=== PATIENT | male | born 1935 | race Caucasian/White ===

== ENCOUNTER → 2016-06-11 | Outpatient (CLI) | payer MEDICARE, OTHER ==
[~2016-06-11] MED LIST: ALBUTEROL0.63 MG/3 NEB; AMARYL4 MG PO; ASPIRIN CHEWABL81 MG PO; ATIVAN1 MG PO; BREO ELLIPTA 11 EACH INH; COLCHICINE0.6 MG PO; FENOFIBRATE160 MG PO; HYDRALAZINE HCL50 MG PO; LASIX 40 MG TAB40 MG PO; LISINOPRIL5 MG PO; LOPRESSOR100 MG PO; LOVASTATIN20 MG PO; NEURONTIN 300300 MG PO; NEXIUM20 MG PO; NOVOLIN 70100 UNITS/ SC; PAXIL10 MG PO; PLAQUENIL 200200 MG PO; PROSCAR5 MG PO; SINGULAIR10 MG PO; SPIRIVA HANDIH18 MCG INH; SYNTHROID112 MCG PO; VENTOLIN HFA8 GM INH; VITAMIN B-125000 MCG SL; XARELTO15 MG PO; XARELTO20 MG PO; ZANTAC300 MG PO; ZOCOR40 MG PO; ZYLOPRIM 300 M300 MG PO
== END ==
LOC: KOH-I 13:19
DX: I73.9 Peripheral vascular disease, unspecified (principal)
CPT/HCPCS: 93925

== ENCOUNTER → 2016-08-10 | Outpatient (CLI) | payer MEDICARE, OTHER | LOC: KOH-I 15:58 | DX: M79.89 Other specified soft tissue disorders (principal); I82.622 Acute embolism and thrombosis of deep veins of left upper extremity | CPT/HCPCS: 93971 ==

== ENCOUNTER 2020-05-20 10:03 | Observation (INO) | payer MEDICARE, OTHER ==
[~2020-05-20] VITALS: Ht 177.8 cm; Wt 102.5 kg
[~2020-05-20 10:03] MED LIST changes: +ACETAMINOPHEN-1 EAC1 PO; +ALBUTEROL2.5 MG/3 M INH; +B-125000 MCG SL; +CEFUROXIME500 MG PO; +CLARITIN10 MG PO; +CLEOCIN HCL300 MG PO; +CLOPIDOGREL75 MG PO; +D3-501250 MCG PO; +DOXYCYCLINE HY100 MG PO; +ECOTRIN81 MG PO; +ELIQUIS2.5 MG PO; +FEOSOL325 MG PO; +FLOMAX 0.4 MG0.4 MG PO; +FLOMAX0.4 MG PO; +FLONASE 0.05% N16 GM; +FUROSEMIDE40 MG PO; +HUMIBID LA TAB600 MG PO; +HYDRALAZINE HCL25 MG PO; -HYDRALAZINE HCL50 MG PO; +IMDUR ER TAB 3030 MG PO; +KEFLEX500 MG PO; +LASIX40 MG PO; +LEVAQUIN500 MG PO; +LISINOPRIL2.5 MG PO; +LOPRESSOR 25 MG25 MG PO; +LOPRESSOR50 MG PO; +MEDROL4 MG PO; +MUCUS ER600 MG PO; +NICOTINE PATCH1 EAC1 TD; +NITROGLYCERIN0.4 MG SL; +NOVOLOG MI100 UNITS/ INJ; +OMNICEF 300 MG300 MG PO; +PLAQUENIL200 MG PO; +PREDNISONE 20 M20 MG PO; +PREDNISONE20 MG PO; +PROTONIX40 MG PO; +SPIRIVA18 MCG INH; +SYMBICORT 16010.2 GM INH; +SYNTHROID175 MCG PO; +TRAMADOL HCL50 MG PO; +TRAZODONE HCL50 MG PO; +TYLENOL W/CODEIN1 E1 PO; +VENTOLIN HFA 66.7 GM INH; -VENTOLIN HFA8 GM INH; +VIBRAMYCIN100 MG PO; +VICTOZA 1818 MG/3 ML SC; +VICTOZA 3-0.6 MG/0.1 SQ; +VITAMIN D31000 UNI1 PO; +XYZAL5 MG PO; +ZAROXOLYN/DIUL2.5 MG PO; +ZOCOR80 MG PO; +ZOFRAN ODT 4 MG4 MG PO; +ZOFRAN4 MG PO; +ZYLOPRIM100 MG PO
[2020-05-20 10:52] LABS: RED BLOOD COUNT 4.37 M/UL (4.20-5.50); WHITE BLOOD COUNT 9.5 K/UL (4.5-11.0)
[2020-05-20] MEDS ORDERED: FERROUS SULFAT325 MG PO (12:02)
[2020-05-20] MEDS ORDERED: ELIQUIS 2.5 MG2.5 MG PO (13:38)
[2020-05-20] MEDS ORDERED: HYDRALAZINE HCL50 MG PO (14:15)
[2020-05-20] MEDS ORDERED: NICORETTE2 M1 BU (15:32)
[2020-05-20] MEDS ORDERED: ZAROXOLYN/DIULO5 MG PO (20:26)
[2020-05-21 03:32] LABS: HEMOGLOBIN 12.8 gm/dl (14.0-17.5); RED BLOOD COUNT 4.09 M/UL (4.20-5.50); WHITE BLOOD COUNT 9.2 K/UL (4.5-11.0)
== END 2020-05-21 10:41 | disposition home or self-care (01) ==
LOC: ER1 10:03 → CDU 14:03 → MED SURG 4 14:03
PROVIDERS: Emergency Medicine; Physician Assistant Medical; ADMIT Internal Medicine
DX: R07.89 Other chest pain (principal); I13.0 Hypertensive heart and chronic kidney disease with heart failure and stage 1 through stage 4 chronic kidney disease, or unspecified chronic kidney disease; E11.22 Type 2 diabetes mellitus with diabetic chronic kidney disease; N18.9 Chronic kidney disease, unspecified; I50.23 Acute on chronic systolic (congestive) heart failure; I42.0 Dilated cardiomyopathy; I25.10 Atherosclerotic heart disease of native coronary artery without angina pectoris; E78.5 Hyperlipidemia, unspecified; E11.51 Type 2 diabetes mellitus with diabetic peripheral angiopathy without gangrene; C67.9 Malignant neoplasm of bladder, unspecified; J44.9 Chronic obstructive pulmonary disease, unspecified; F17.210 Nicotine dependence, cigarettes, uncomplicated; Z20.822 Contact with and (suspected) exposure to COVID-19; Z95.810 Presence of automatic (implantable) cardiac defibrillator; Z86.718 Personal history of other venous thrombosis and embolism; Z82.49 Family history of ischemic heart disease and other diseases of the circulatory system; Z91.048 Other nonmedicinal substance allergy status; Z79.4 Long term (current) use of insulin; Z79.01 Long term (current) use of anticoagulants; Z79.899 Other long term (current) drug therapy
CPT/HCPCS: 36415; 71046; 80048; 80053; 82550; 82553; 82962; 83036; 83735; 83874; 83880; 84439; 84443; 84484; 85025; 85027; 85610; 85730; 93005; 96372; 96374; 96375; 96376; 99285; G0378; J1940; U0002

== ENCOUNTER 2020-08-11 10:12 | Day surgery (SDC) | payer MEDICARE, OTHER ==
[~2020-08-11 10:12] MED LIST changes: +ELIQUIS 2.5 MG2.5 MG PO; +FERROUS SULFAT325 MG PO; +HYDRALAZINE HCL50 MG PO; +NICORETTE2 M1 BU; +ZAROXOLYN/DIULO5 MG PO
[2020-08-11 11:47] LABS: HEMOGLOBIN 9.8 gm/dl (14.0-17.5); RED BLOOD COUNT 3.17 M/UL (4.20-5.50); WHITE BLOOD COUNT 8.5 K/UL (4.5-11.0)
[2020-08-11] MEDS ORDERED: SPIRIVA18 MCG INH (11:51)
== END 2020-08-11 16:52 | disposition home or self-care (01) ==
LOC: OR 10:12 → MED SURG 4 14:58 → OR 16:52
PROVIDERS: Urology
DX: C67.8 Malignant neoplasm of overlapping sites of bladder (principal); N40.1 Benign prostatic hyperplasia with lower urinary tract symptoms; R33.8 Other retention of urine; J44.9 Chronic obstructive pulmonary disease, unspecified; I13.0 Hypertensive heart and chronic kidney disease with heart failure and stage 1 through stage 4 chronic kidney disease, or unspecified chronic kidney disease; E11.22 Type 2 diabetes mellitus with diabetic chronic kidney disease; N18.9 Chronic kidney disease, unspecified; I50.43 Acute on chronic combined systolic (congestive) and diastolic (congestive) heart failure; I25.10 Atherosclerotic heart disease of native coronary artery without angina pectoris; K21.9 Gastro-esophageal reflux disease without esophagitis; E11.51 Type 2 diabetes mellitus with diabetic peripheral angiopathy without gangrene; E78.5 Hyperlipidemia, unspecified; I48.91 Unspecified atrial fibrillation; F17.210 Nicotine dependence, cigarettes, uncomplicated; E66.2 Morbid (severe) obesity with alveolar hypoventilation; M19.90 Unspecified osteoarthritis, unspecified site; Z95.0 Presence of cardiac pacemaker; Z68.30 Body mass index [BMI] 30.0-30.9, adult; Z91.048 Other nonmedicinal substance allergy status; Z79.01 Long term (current) use of anticoagulants; Z79.4 Long term (current) use of insulin; Z79.899 Other long term (current) drug therapy; Z20.822 Contact with and (suspected) exposure to COVID-19
CPT/HCPCS: 36415; 82962; 85027; 93005; C1769; J1956; J2001; J2370; J2405; J2704; J2710; J3010; J7030; J7120; U0002

== ENCOUNTER → 2020-09-16 | Outpatient (CLI) | payer MEDICARE, OTHER | LOC: CT 12:32 | DX: C67.2 Malignant neoplasm of lateral wall of bladder (principal); N13.30 Unspecified hydronephrosis | CPT/HCPCS: 71260; 82565; 84520; Q9967 ==

== ENCOUNTER 2020-11-13 09:32 | Inpatient (IN) | payer MEDICARE, OTHER ==
[~2020-11-13] VITALS: Ht 177.8 cm; Wt 94.3 kg
[2020-11-13 10:19] LABS: HEMOGLOBIN 13.7 gm/dl (14.0-17.5); RED BLOOD COUNT 4.38 M/UL (4.20-5.50); WHITE BLOOD COUNT 7.7 K/UL (4.5-11.0)
[2020-11-13 10:59] LABS: BUN/CREATININE RATIO 26 (0-10)
[2020-11-14 02:54] LABS: HEMOGLOBIN 12.8 gm/dl (14.0-17.5); RED BLOOD COUNT 4.19 M/UL (4.20-5.50)
[2020-11-14 04:24] LABS: ACINETOBACTER BAUMANNII Not Detected (Negative); CANDIDA ALBICANS Not Detected (Negative); CANDIDA KRUSEI Not Detected (Negative); CANDIDA TROPICALIS Not Detected (Negative); ENTEROCOCCUS Not Detected (Negative); ESCHERICHIA COLI Not Detected (Negative); HAEMOPHILUS INFLUENZAE Not Detected (Negative); KLEBSIELLA OXYTOCA Not Detected (Negative); KLEBSIELLA PNEUMONIAE Not Detected (Negative); KPC-CARBAPENEM-RESISTANCE GENE Not Detected (Negative); PROTEUS Not Detected (Negative); PSEUDOMONAS AERUGINOSA Not Detected (Negative); SERRATIA MARCESANS Not Detected (Negative); STAPHYLOCOCCUS AUREUS Not Detected (Negative); STREP AGALACTIAE (GROUP B) Not Detected (Negative); STREP PYOGENES (GROUP A) Not Detected (Negative); STREPTOCOCCUS Not Detected (Negative); vanA/B (VANCOMYCIN RESIST GENE Not Detected (Negative)
[2020-11-14 05:37] LABS: STAPHYLOCOCCUS DETECTED (Negative); mecA (METHICILLIN RESIST GENE DETECTED (Negative)
[2020-11-14 11:00] LABS: BORDETELLA PARAPERTUSSIS Not Detected (Not Detectd); BORDETELLA PERTUSSIS Not Detected (Not Detectd); CHLAMYDIA PNEUMONIAE Not Detected (Not Detectd); CORONAVIRUS HKU1 Not Detected (Not Detectd); CORONAVIRUS NL63 Not Detected (Not Detectd); CORONAVIRUS OC43 Not Detected (Not Detectd); CORONOAVIRUS 229E Not Detected (Not Detectd); HUMAN METAPNEUMOVIRUS Not Detected (Not Detectd); INFLUENZA A Not Detected (Not Detectd); INFLUENZA B Not Detected (Not Detectd); MYCOPLASMA PNEUMONIAE Not Detected (Not Detectd); PARAINFLUENZA VIRUS 1 Not Detected (Not Detectd); PARAINFLUENZA VIRUS 2 Not Detected (Not Detectd); PARAINFLUENZA VIRUS 3 Not Detected (Not Detectd); PARAINFLUENZA VIRUS 4 Not Detected (Not Detectd); RESPIRATORY SYNCYTIAL VIRUS Not Detected (Not Detectd)
[2020-11-14 12:52] LABS: HUMAN RHINOVIRUS/ENTEROVIRUS DETECTED (Not Detectd); SARS-CoV-2 NOT DETECTED (Not Detectd)
[2020-11-16 04:51] LABS: HEMOGLOBIN 12.7 gm/dl (14.0-17.5); RED BLOOD COUNT 4.07 M/UL (4.20-5.50); WHITE BLOOD COUNT 21.7 K/UL (4.5-11.0)
[2020-11-17 06:49] LABS: HEMOGLOBIN 13.2 gm/dl (14.0-17.5); RED BLOOD COUNT 4.31 M/UL (4.20-5.50)
[2020-11-17 06:56] LABS: WHITE BLOOD COUNT 16.2 K/UL (4.5-11.0)
[2020-11-17] MEDS ORDERED: LEVOFLOXACIN750 MG PO (16:39)
== END 2020-11-17 18:10 | disposition home or self-care (01) | DRG 177 ==
LOC: ER1 09:32 → PROG CARE 10:40 → CDU 10:40 → PROG CARE 15:42 → MED SURG 4 11-16 11:30
PROVIDERS: Emergency Medicine; Internal Medicine Infectious Disease; Physician Assistant; ADMIT Internal Medicine
PROC: B24BZZ4 Ultrasonography of Heart with Aorta, Transesophageal (ICD-10-PCS; principal; 2020-11-13)
DX: J15.1 Pneumonia due to Pseudomonas (principal); J96.21 Acute and chronic respiratory failure with hypoxia; N17.0 Acute kidney failure with tubular necrosis; Z20.822 Contact with and (suspected) exposure to COVID-19; J44.1 Chronic obstructive pulmonary disease with (acute) exacerbation; I50.22 Chronic systolic (congestive) heart failure; I13.0 Hypertensive heart and chronic kidney disease with heart failure and stage 1 through stage 4 chronic kidney disease, or unspecified chronic kidney disease; I42.8 Other cardiomyopathies; I44.2 Atrioventricular block, complete; J44.0 Chronic obstructive pulmonary disease with (acute) lower respiratory infection; N13.1 Hydronephrosis with ureteral stricture, not elsewhere classified; I25.10 Atherosclerotic heart disease of native coronary artery without angina pectoris; I44.7 Left bundle-branch block, unspecified; G47.33 Obstructive sleep apnea (adult) (pediatric); N18.30 Chronic kidney disease, stage 3 unspecified; E11.22 Type 2 diabetes mellitus with diabetic chronic kidney disease; I08.3 Combined rheumatic disorders of mitral, aortic and tricuspid valves; I27.20 Pulmonary hypertension, unspecified; E11.51 Type 2 diabetes mellitus with diabetic peripheral angiopathy without gangrene; I48.0 Paroxysmal atrial fibrillation; F17.210 Nicotine dependence, cigarettes, uncomplicated; D69.6 Thrombocytopenia, unspecified; E11.65 Type 2 diabetes mellitus with hyperglycemia; T38.0X5A Adverse effect of glucocorticoids and synthetic analogues, initial encounter; C76.8 Malignant neoplasm of other specified ill-defined sites; Z86.718 Personal history of other venous thrombosis and embolism; Z79.01 Long term (current) use of anticoagulants; Z80.1 Family history of malignant neoplasm of trachea, bronchus and lung; Z80.52 Family history of malignant neoplasm of bladder; Z83.3 Family history of diabetes mellitus; Z95.0 Presence of cardiac pacemaker
CPT/HCPCS: ECHO; 36415; 36600; 71045; 71046; 80048; 80053; 80202; 82550; 82553; 82803; 82962; 83605; 83735; 83874; 83880; 84443; 84484; 85025; 87040; 87070; 87077; 87150; 87186; 87205; 87633; 93005; 93306; 94640; 94660; 94664; 94760; 96374; 99285; J0456; J0696; J2185; J2920; J2930; J3370; J7030; J7070; U0002